=== PATIENT | male | born 1945 | race Caucasian/White ===

== ENCOUNTER 2017-05-14 08:24 | Outpatient (CLI) | payer OTHER ==
[~2017-05-14 08:24] MED LIST: AMLO5TAB4 PO; ASPI-1063 PO; DULO20CA PO; FENO160 PO; GLIP10TA11 PO; HYDR25TA4 PO; INSU300I SQ; LEVO100T9 PO; LINA5TAB2 PO; METO50TA7 PO; OMEG1CAP18 PO; OMEP20CA10 PO; ROSU5TAB3 PO
== END 2017-05-14 20:15 | disposition home or self-care (01) ==
LOC: SCT 08:24
PROVIDERS: ATTEND Family Medicine
DX: K44.9 Diaphragmatic hernia without obstruction or gangrene (principal); M47.899 Other spondylosis, site unspecified
CPT/HCPCS: 74150-TC

== ENCOUNTER 2017-06-22 13:03 | Outpatient (CLI) | payer OTHER ==
[2017-06-22 14:30] LABS: BASOPHILS % (AUTO) 0.6 % (0.0-2.0); EOSINOPHILS # (AUTO) 0.1 K/uL (0.0-0.4); EOSINOPHILS % (AUTO) 2.6 % (0.0-4.0); HEMATOCRIT 48.6 % (36-54); HEMOGLOBIN 16.1 g/dL (14.0-18.0); LYMPHOCYTES # (AUTO) 1.7 K/uL (1.0-5.5); LYMPHOCYTES % (AUTO) 31.9 % (20.5-51.5); MEAN CORPUSCULAR HEMOGLOBIN 28 pg (27-31); MEAN CORPUSCULAR HGB CONC 33 % (32-36); MEAN CORPUSCULAR VOLUME 84 fL (79.0-98.0); MONOCYTES # (AUTO) 0.4 K/uL (0.0-1.0); MONOCYTES % (AUTO) 7.6 % (1.7-9.3); NEUTROPHILS # (AUTO) 3.1 K/uL (1.8-7.7); NEUTROPHILS % (AUTO) 57.3 % (40.0-70.0); PLATELET COUNT (AUTO) 123 K/uL (130-430); RED BLOOD CELL COUNT(AUTO) 5.78 MIL/uL (4.2-6.2); RED CELL DISTRIBUTION WIDTH 14.5 % (9.0-15.0); WHITE BLOOD COUNT (AUTO) 5.3 K/uL (4.8-10.8)
[2017-06-22 14:43] LABS: ALANINE AMINOTRANSFERASE 15 U/L (12-78); ALBUMIN 3.8 g/dL (3.4-4.8); ANION GAP 7 (5-15); ASPARTATE AMINOTRANSFERASE 17 U/L (10-37); CALCIUM 8.9 mg/dL (8.4-11.0); CHLORIDE 104 mmol/L (98-107); CREATININE 1.79 mg/dL (0.55-1.30); GLUCOSE 261 mg/dL (70-99); PHOSPHORUS 3.5 mg/dL (2.7-4.5); POTASSIUM 3.5 mmol/L (3.5-5.1); SODIUM SERUM 138 mmol/L (136-145); TOTAL BILIRUBIN 0.6 mg/dL (0.0-1.0); UREA NITROGEN, BLOOD 20 mg/dL (8-21)
[2017-06-22 14:44] LABS: BILIRUBIN,URINE NEGATIVE (NEGATIVE); BLOOD, URINE NEGATIVE (NEGATIVE); CLARITY/URINE CLEAR (CLEAR); COLOR,URINE YELLOW (YELLOW); GLUCOSE,URINE 3+ (NEGATIVE); KETONES,URINE NEGATIVE (NEGATIVE); LEUKOCYTE ESTERASE ,URINE NEGATIVE (NEGATIVE); NITRITE, URINE NEGATIVE (NEGATIVE); PH,URINE 5.5 (5.0-8.0); PROTEIN URINE TRACE (NEGATIVE); UROBILINOGEN,URINE 0.2 (0.2-1.0)
[2017-06-22 15:44] LABS: BACTERIA,URINE FEW /HPF (None Seen); RBC,URINE NONE SEEN /HPF (0-3); WBC,URINE 0-3 /HPF (0-3)
[2017-06-22 15:45] LABS: MUCUS,URINE None Seen /LPF (None Seen)
== END 2017-06-22 20:39 | disposition home or self-care (01) ==
LOC: SLB 13:03
PROVIDERS: ATTEND Specialist
DX: E11.22 Type 2 diabetes mellitus with diabetic chronic kidney disease (principal); N18.3 Chronic kidney disease, stage 3 (moderate); E11.21 Type 2 diabetes mellitus with diabetic nephropathy; E78.5 Hyperlipidemia, unspecified; R80.9 Proteinuria, unspecified
CPT/HCPCS: 36415; 80053; 81000-TC; 82570-TC; 83735-TC; 84100-TC; 84156; 85025

== ENCOUNTER 2017-07-15 10:53 | Outpatient (CLI) | payer OTHER ==
[2017-07-15] MEDS ORDERED: DIATR MEGLU/DIATRIZ SOD 30 ML SOLUTION PO ONE (11:29)
== END 2017-07-15 20:30 | disposition home or self-care (01) ==
LOC: SCT 10:53
PROVIDERS: ATTEND Specialist
DX: N40.1 Benign prostatic hyperplasia with lower urinary tract symptoms (principal); K44.9 Diaphragmatic hernia without obstruction or gangrene; Z90.49 Acquired absence of other specified parts of digestive tract
CPT/HCPCS: 74176; Q9964

== ENCOUNTER 2017-10-15 06:39 | Day surgery (SDC) | payer OTHER, MEDICAID ==
[2017-10-15] MEDS ORDERED: SIMETHICONE 40 MG/0.6 ML ML ONE (06:55)
[2017-10-15] MEDS ORDERED: MEPERIDINE HCL/PF 100 MG/ML AMP ONE ×2 (06:56→07:11)
[2017-10-15] MEDS: MIDAZOLAM HCL 5 MG/5 ML VIAL ONE ×3 (08:44→09:03)
[2017-10-15 13:53] VITALS: BP_SYST 158
== END 2017-10-15 10:45 | disposition home or self-care (01) ==
LOC: SDS 06:39
PROVIDERS: ATTEND Internal Medicine Gastroenterology
PROC: 0DJD8ZZ Inspection of Lower Intestinal Tract, Via Natural or Artificial Opening Endoscopic (ICD-10-PCS; 2017-10-15)
PROC: 0DB98ZX Excision of Duodenum, Via Natural or Artificial Opening Endoscopic, Diagnostic (ICD-10-PCS; principal; 2017-10-15 08:00)
PROC: 0D758ZZ Dilation of Esophagus, Via Natural or Artificial Opening Endoscopic (ICD-10-PCS; 2017-10-15 08:00)
DX: K22.2 Esophageal obstruction (principal); K29.70 Gastritis, unspecified, without bleeding; K29.80 Duodenitis without bleeding; K44.9 Diaphragmatic hernia without obstruction or gangrene; K21.9 Gastro-esophageal reflux disease without esophagitis; K57.30 Diverticulosis of large intestine without perforation or abscess without bleeding; K64.8 Other hemorrhoids; R19.4 Change in bowel habit; I10 Essential (primary) hypertension; E11.9 Type 2 diabetes mellitus without complications; Z79.84 Long term (current) use of oral hypoglycemic drugs
CPT/HCPCS: 45378; 43239; 43248; 36415; 82962; 87081; 88305; 88312; 88313; J2175; J2250

== ENCOUNTER 2017-10-16 06:26 | Day surgery (SDC) | payer OTHER, MEDICAID ==
[2017-10-16] MEDS ORDERED: MEPERIDINE HCL/PF 100 MG/ML AMP ONE ×2 (06:37)
[2017-10-16] MEDS ORDERED: SIMETHICONE 40 MG/0.6 ML ML ONE (06:38)
[2017-10-16] MEDS ORDERED: MIDAZOLAM HCL 5 MG/5 ML VIAL ONE (06:38)
[2017-10-16] MEDS: MIDAZOLAM HCL 5 MG/5 ML VIAL ONE ×2 (08:42→08:44)
[2017-10-16 10:49] VITALS: BP_SYST 147
== END 2017-10-16 12:00 | disposition home or self-care (01) ==
LOC: SDS 06:26 → SMU 06:26 → SDS 12:00
PROVIDERS: ATTEND Internal Medicine Gastroenterology
DX: D12.3 Benign neoplasm of transverse colon (principal); K64.8 Other hemorrhoids; E11.9 Type 2 diabetes mellitus without complications; Z79.84 Long term (current) use of oral hypoglycemic drugs; I10 Essential (primary) hypertension; Z88.8 Allergy status to other drugs, medicaments and biological substances
CPT/HCPCS: 45380; 82962; 88305; J2175; J2250

== ENCOUNTER 2017-10-27 14:10 | Outpatient (CLI) | payer OTHER, MEDICAID ==
[2017-10-27 14:57] LABS: BASOPHILS % (AUTO) 0.6 % (0.0-2.0); EOSINOPHILS # (AUTO) 0.2 K/uL (0.0-0.4); EOSINOPHILS % (AUTO) 2.4 % (0.0-4.0); HEMATOCRIT 53.7 % (36-54); HEMOGLOBIN 17.4 g/dL (14.0-18.0); LYMPHOCYTES # (AUTO) 1.7 K/uL (1.0-5.5); MEAN CORPUSCULAR HEMOGLOBIN 28 pg (27-31); MEAN CORPUSCULAR HGB CONC 32 % (32-36); MEAN CORPUSCULAR VOLUME 86 fL (79.0-98.0); MONOCYTES # (AUTO) 0.5 K/uL (0.0-1.0); MONOCYTES % (AUTO) 7.2 % (1.7-9.3); NEUTROPHILS % (AUTO) 62.8 % (40.0-70.0); PLATELET COUNT (AUTO) 160 K/uL (130-430); RED BLOOD CELL COUNT(AUTO) 6.28 MIL/uL (4.2-6.2); RED CELL DISTRIBUTION WIDTH 13.9 % (9.0-15.0); WHITE BLOOD COUNT (AUTO) 6.4 K/uL (4.8-10.8)
[2017-10-27 15:00] LABS: BILIRUBIN,URINE NEGATIVE (NEGATIVE); BLOOD, URINE NEGATIVE (NEGATIVE); CLARITY/URINE CLEAR (CLEAR); COLOR,URINE YELLOW (YELLOW); GLUCOSE,URINE 3+ (NEGATIVE); KETONES,URINE NEGATIVE (NEGATIVE); LEUKOCYTE ESTERASE ,URINE NEGATIVE (NEGATIVE); NITRITE, URINE NEGATIVE (NEGATIVE); PROTEIN URINE 1+ (NEGATIVE); UROBILINOGEN,URINE 0.2 (0.2-1.0)
[2017-10-27 15:11] LABS: ANION GAP 6 (5-15); CALCIUM 9.1 mg/dL (8.4-11.0); CHLORIDE 102 mmol/L (98-107); GLUCOSE 156 mg/dL (70-99); POTASSIUM 3.8 mmol/L (3.5-5.1); SODIUM SERUM 141 mmol/L (136-145); UREA NITROGEN, BLOOD 20 mg/dL (8-21)
[2017-10-27 15:17] LABS: ALANINE AMINOTRANSFERASE 27 U/L (12-78); ALBUMIN 3.9 g/dL (3.4-4.8); ASPARTATE AMINOTRANSFERASE 18 U/L (10-37); PHOSPHORUS 3.2 mg/dL (2.7-4.5); TOTAL BILIRUBIN 0.5 mg/dL (0.0-1.0)
[2017-10-27 16:14] LABS: CHOLESTEROL 190 mg/dL (<200); HDL CHOLESTEROL 50 mg/dL (>45); LDL CHOLESTEROL 105 mg/dL (<100); TRIGLYCERIDES 219 mg/dL (30-150)
[2017-10-27 17:40] LABS: BACTERIA,URINE FEW /HPF (None Seen); RBC,URINE NONE SEEN /HPF (0-3)
[2017-10-27 17:41] LABS: FINE GRANULAR CASTS,URINE 0-10 /LPF (None Seen); MUCUS,URINE 1+ /LPF (None Seen)
[2017-10-31 21:30] LABS: CREATININE, URINE 144.5 mg/dL; MICROALBUMIN URINE RANDOM 141.4 ug/ml (NOT ESTABLISHED); MICROALBUMIN/CREAT RATIO, UR 97.9 MG/G CRE (0.0-30.0)
== END 2017-10-27 21:20 | disposition home or self-care (01) ==
LOC: SLB 14:10
PROVIDERS: ATTEND Specialist
DX: N18.3 Chronic kidney disease, stage 3 (moderate) (principal); D63.1 Anemia in chronic kidney disease; E11.22 Type 2 diabetes mellitus with diabetic chronic kidney disease
CPT/HCPCS: 36415; 80053; 80061; 81000-TC; 81003; 82043; 82570; 83036; 83735-TC; 84100-TC; 85025

== ENCOUNTER 2017-12-28 11:03 | Outpatient (CLI) | payer OTHER, MEDICAID ==
[2017-12-28 11:34] LABS: BILIRUBIN,URINE NEGATIVE (NEGATIVE); BLOOD, URINE 1+ (NEGATIVE); CLARITY/URINE CLEAR (CLEAR); COLOR,URINE YELLOW (YELLOW); GLUCOSE,URINE 3+ (NEGATIVE); KETONES,URINE NEGATIVE (NEGATIVE); LEUKOCYTE ESTERASE ,URINE NEGATIVE (NEGATIVE); NITRITE, URINE NEGATIVE (NEGATIVE); PH,URINE 5.5 (5.0-8.0); PROTEIN URINE 1+ (NEGATIVE); UROBILINOGEN,URINE 0.2 (0.2-1.0)
[2017-12-28 11:39] LABS: BASOPHILS % (AUTO) 0.6 % (0.0-2.0); EOSINOPHILS # (AUTO) 0.1 K/uL (0.0-0.4); EOSINOPHILS % (AUTO) 2.2 % (0.0-4.0); HEMATOCRIT 48.8 % (36-54); HEMOGLOBIN 16.1 g/dL (14.0-18.0); LYMPHOCYTES # (AUTO) 1.9 K/uL (1.0-5.5); LYMPHOCYTES % (AUTO) 31.6 % (20.5-51.5); MEAN CORPUSCULAR HEMOGLOBIN 28 pg (27-31); MEAN CORPUSCULAR HGB CONC 33 % (32-36); MEAN CORPUSCULAR VOLUME 84 fL (79.0-98.0); MONOCYTES # (AUTO) 0.5 K/uL (0.0-1.0); MONOCYTES % (AUTO) 8.7 % (1.7-9.3); NEUTROPHILS # (AUTO) 3.6 K/uL (1.8-7.7); NEUTROPHILS % (AUTO) 56.9 % (40.0-70.0); PLATELET COUNT (AUTO) 150 K/uL (130-430); WHITE BLOOD COUNT (AUTO) 6.1 K/uL (4.8-10.8)
[2017-12-28 11:43] LABS: BACTERIA,URINE FEW /HPF (None Seen); MUCUS,URINE None Seen /LPF (None Seen); RBC,URINE 0-3 /HPF (0-3); WBC,URINE NONE SEEN /HPF (0-3)
[2017-12-28 11:47] LABS: ANION GAP 6 (5-15); CALCIUM 9.1 mg/dL (8.4-11.0); CHLORIDE 102 mmol/L (98-107); CREATININE 1.56 mg/dL (0.55-1.30); GLUCOSE 155 mg/dL (70-99); POTASSIUM 3.7 mmol/L (3.5-5.1); SODIUM SERUM 138 mmol/L (136-145); UREA NITROGEN, BLOOD 24 mg/dL (8-21)
[2017-12-28 11:53] LABS: ALANINE AMINOTRANSFERASE 35 U/L (12-78); ALBUMIN 3.7 g/dL (3.4-4.8); ASPARTATE AMINOTRANSFERASE 19 U/L (10-37); PHOSPHORUS 3.1 mg/dL (2.7-4.5); TOTAL BILIRUBIN 0.6 mg/dL (0.0-1.0)
[2017-12-30 09:48] LABS: HEMOGLOBIN A1C 10.3 % (4.8-5.6)
[2017-12-30 10:13] LABS: CREATININE, URINE 95.7 mg/dL; MICROALBUMIN URINE RANDOM 123.9 ug/ml (NOT ESTABLISHED); MICROALBUMIN/CREAT RATIO, UR 129.5 MG/G CRE (0.0-30.0)
== END 2017-12-28 19:54 | disposition home or self-care (01) ==
LOC: SLB 11:03
PROVIDERS: ATTEND Family Medicine
DX: E11.22 Type 2 diabetes mellitus with diabetic chronic kidney disease (principal); E11.69 Type 2 diabetes mellitus with other specified complication; N18.3 Chronic kidney disease, stage 3 (moderate); E78.5 Hyperlipidemia, unspecified; E87.6 Hypokalemia
CPT/HCPCS: 36415; 80053; 81000-TC; 82043; 82570; 83036; 83735-TC; 84100-TC; 84403; 85025

== ENCOUNTER 2018-03-09 07:20 | Outpatient (CLI) | payer OTHER ==
[2018-03-09 07:53] LABS: BASOPHILS % (AUTO) 0.5 % (0.0-2.0); EOSINOPHILS # (AUTO) 0.1 K/uL (0.0-0.4); EOSINOPHILS % (AUTO) 2.2 % (0.0-4.0); HEMATOCRIT 49.3 % (36-54); LYMPHOCYTES # (AUTO) 1.8 K/uL (1.0-5.5); MEAN CORPUSCULAR HEMOGLOBIN 29 pg (27-31); MEAN CORPUSCULAR HGB CONC 35 % (32-36); MEAN CORPUSCULAR VOLUME 84 fL (79.0-98.0); MONOCYTES # (AUTO) 0.5 K/uL (0.0-1.0); MONOCYTES % (AUTO) 7.4 % (1.7-9.3); NEUTROPHILS # (AUTO) 3.8 K/uL (1.8-7.7); NEUTROPHILS % (AUTO) 60.9 % (40.0-70.0); PLATELET COUNT (AUTO) 130 K/uL (130-430); RED BLOOD CELL COUNT(AUTO) 5.85 MIL/uL (4.2-6.2); RED CELL DISTRIBUTION WIDTH 13.9 % (9.0-15.0); WHITE BLOOD COUNT (AUTO) 6.2 K/uL (4.8-10.8)
[2018-03-09 07:54] LABS: BILIRUBIN,URINE NEGATIVE (NEGATIVE); BLOOD, URINE 1+ (NEGATIVE); CLARITY/URINE CLEAR (CLEAR); COLOR,URINE YELLOW (YELLOW); GLUCOSE,URINE 3+ (NEGATIVE); KETONES,URINE NEGATIVE (NEGATIVE); LEUKOCYTE ESTERASE ,URINE NEGATIVE (NEGATIVE); NITRITE, URINE NEGATIVE (NEGATIVE); PH,URINE 5.5 (5.0-8.0); PROTEIN URINE TRACE (NEGATIVE); UROBILINOGEN,URINE 0.2 (0.2-1.0)
[2018-03-09 08:04] LABS: ANION GAP 9 (5-15); CALCIUM 8.8 mg/dL (8.4-11.0); CHLORIDE 102 mmol/L (98-107); CREATININE 1.45 mg/dL (0.55-1.30); GLUCOSE 251 mg/dL (70-99); POTASSIUM 3.5 mmol/L (3.5-5.1); SODIUM SERUM 139 mmol/L (136-145); UREA NITROGEN, BLOOD 24 mg/dL (8-21)
[2018-03-09 08:08] LABS: PHOSPHORUS 3.1 mg/dL (2.7-4.5)
[2018-03-09 08:15] LABS: BACTERIA,URINE RARE /HPF (None Seen); MUCUS,URINE 1+ /LPF (None Seen); RBC,URINE 0-3 /HPF (0-3); WBC,URINE 0-3 /HPF (0-3)
[2018-03-10 06:06] LABS: CALCIUM 9.1 mg/dL (8.6-10.2)
[2018-03-10 08:39] LABS: HEMOGLOBIN A1C 9.4 % (4.8-5.6)
== END 2018-03-09 20:47 | disposition home or self-care (01) ==
LOC: SLB 07:20
PROVIDERS: ATTEND Specialist
DX: I12.9 Hypertensive chronic kidney disease with stage 1 through stage 4 chronic kidney disease, or unspecified chronic kidney disease (principal); E11.21 Type 2 diabetes mellitus with diabetic nephropathy; E11.22 Type 2 diabetes mellitus with diabetic chronic kidney disease; N18.3 Chronic kidney disease, stage 3 (moderate); E78.5 Hyperlipidemia, unspecified; E03.9 Hypothyroidism, unspecified; Z79.84 Long term (current) use of oral hypoglycemic drugs
CPT/HCPCS: 36415; 80048; 81000-TC; 82310; 82570-TC; 83036; 83970; 84100-TC; 84156; 85025